=== PATIENT | male | born 1950 | race Caucasian/White ===

== ENCOUNTER 2017-10-10 22:29 | Inpatient (IN) | payer MEDICARE ==
[~2017-10-10] VITALS: Ht 177.8 cm; Wt 73.8 kg
[~2017-10-10 22:29] MED LIST: ASPI-496 PO; EMTR1TAB8 PO; LEVE500T8 PO; LORA-445 PO; MELO15TA24 PO; OMEP-110 PO; OXYC5TAB3 PO; POLY17PO5 PO; RALT400T PO
[2017-10-10] MEDS ORDERED: SODIUM CHLORIDE 0.9% 1,000ML IVBOLUS ONE (23:00)
[2017-10-10] MEDS ORDERED: ONDANSETRON 2MG/ML, 2ML IVPush ONE (23:00)
[2017-10-11] MEDS ORDERED: SODIUM CHLORIDE 0.9% 1,000 ML IV ONE (00:07)
[2017-10-11] MEDS ORDERED: SODIUM CHLORIDE 0.9% 1,000ML IVBOLUS ONE (00:30)
[2017-10-11] MEDS ORDERED: NICOTINE 14MG/24 HR PATCH.TD24 TD ONE (00:30)
[2017-10-11 00:34] LABS: HEMATOCRIT 44.2 % (39.2-51.8); HEMOGLOBIN 15.3 g/dL (13.7-18.0)
[2017-10-11 00:45] LABS: BLOOD UREA NITROGEN 6 mg/dL (7-18)
[2017-10-11 00:48] LABS: ASPARTATE AMINO TRANSFERASE 32 U/L (15-37)
[2017-10-11 00:55] LABS: ACETAMINOPHEN < 2 mcg/mL (10-30)
[2017-10-11 01:06] LABS: DAU SCREEN DISCLAIMER
[2017-10-11] MEDS ORDERED: ONDANSETRON 2MG/ML, 2ML ONE (02:24)
[2017-10-11] MEDS ORDERED: NICOTINE 14MG/24 HR PATCH.TD24 ONE (02:24)
[2017-10-11] MEDS ORDERED: SODIUM CHLORIDE FLUSH 10ML SYR IVF PRN (03:30)
[2017-10-11] MEDS ORDERED: ACETAMINOPHEN 325 MG TABLET PO PRN (04:30)
[2017-10-11] MEDS ORDERED: LORazepam 0.5MG TABLET PO PRN (05:00)
[2017-10-11 08:37] VITALS: BP 150/70
[2017-10-11] MEDS: RALTEGRAVIR 400 MG TABLET PO SCH ×2 (09:00→19:40)
[2017-10-11] MEDS: EMTRICITABINE/TENOFOVIR 200 MG/300 MG TABLET PO SCH (09:00)
[2017-10-11] MEDS: OXYcodone IR 5MG TABLET PO PRN ×3 (09:21→19:40)
[2017-10-11] MEDS: POLYETHYLENE GLYCOL 17 GM PACKET PO SCH (09:22)
[2017-10-11] MEDS: LEVETIRACETAM 500 MG TABLET PO SCH ×2 (09:56→19:40)
[2017-10-11] MEDS: ASPIRIN 81 MG TABLET EC PO SCH (09:56)
[2017-10-11] MEDS: OMEPRAZOLE 20 MG CAPSULE.DR PO SCH (09:56)
[2017-10-11] MEDS: MELOXICAM 15 MG TABLET PO SCH (09:57)
[2017-10-11 13:36] VITALS: BP 150/80
[2017-10-11] MEDS: NICOTINE 14MG/24 HR PATCH.TD24 TD SCH (16:33)
[2017-10-11] MEDS: LORazepam 2 MG/ML, 1ML IVPush PRN ×2 (17:05→23:12)
[2017-10-11 19:35] VITALS: BP 137/73
[2017-10-11] MEDS ORDERED: LORazepam 1MG TABLET ONE (23:04)
[2017-10-12 04:10] VITALS: BP 114/65
[2017-10-12 07:57] VITALS: BP 134/71
[2017-10-12] MEDS: OXYcodone IR 5MG TABLET PO PRN ×3 (08:47→23:02)
[2017-10-12] MEDS: POLYETHYLENE GLYCOL 17 GM PACKET PO SCH (08:48)
[2017-10-12] MEDS: ASPIRIN 81 MG TABLET EC PO SCH (08:49)
[2017-10-12] MEDS: LEVETIRACETAM 500 MG TABLET PO SCH ×2 (08:49→22:04)
[2017-10-12] MEDS: EMTRICITABINE/TENOFOVIR 200 MG/300 MG TABLET PO SCH (08:49)
[2017-10-12] MEDS: RALTEGRAVIR 400 MG TABLET PO SCH ×2 (08:50→22:03)
[2017-10-12] MEDS: OMEPRAZOLE 20 MG CAPSULE.DR PO SCH (08:50)
[2017-10-12] MEDS: MELOXICAM 15 MG TABLET PO SCH (08:50)
[2017-10-12] MEDS: LORazepam 2 MG/ML, 1ML IVPush PRN ×2 (10:12→16:49)
[2017-10-12] MEDS ORDERED: LORazepam 2 MG/ML, 1ML IVPush PRN (11:30)
[2017-10-12] MEDS: NICOTINE 14MG/24 HR PATCH.TD24 TD SCH (17:04)
[2017-10-12] MEDS ORDERED: GADOBUTROL 7.5 MMOL/7.5 ML PFS ONE (17:22)
[2017-10-12 20:27] VITALS: BP 148/74
[2017-10-13] MEDS: LORazepam 2 MG/ML, 1ML IVPush PRN ×3 (00:04→16:52)
[2017-10-13 02:38] VITALS: BP 154/78
[2017-10-13 08:25] VITALS: BP 137/75
[2017-10-13] MEDS: ASPIRIN 81 MG TABLET EC PO SCH (08:57)
[2017-10-13] MEDS: LEVETIRACETAM 500 MG TABLET PO SCH (08:57)
[2017-10-13] MEDS: MELOXICAM 15 MG TABLET PO SCH (08:57)
[2017-10-13] MEDS: EMTRICITABINE/TENOFOVIR 200 MG/300 MG TABLET PO SCH (08:58)
[2017-10-13] MEDS: RALTEGRAVIR 400 MG TABLET PO SCH (08:58)
[2017-10-13] MEDS: OMEPRAZOLE 20 MG CAPSULE.DR PO SCH (08:59)
[2017-10-13] MEDS: POLYETHYLENE GLYCOL 17 GM PACKET PO SCH (09:12)
[2017-10-13] MEDS: OXYcodone IR 5MG TABLET PO PRN ×2 (13:22→15:52)
[2017-10-13 13:59] VITALS: BP 157/75
[2017-10-13] MEDS: NICOTINE 14MG/24 HR PATCH.TD24 TD SCH (14:02)
[2017-10-13] MEDS ORDERED: NICO-486 TD (15:14)
== END 2017-10-13 17:00 | disposition home or self-care (01) | DRG 976 ==
LOC: ED 10-11 00:52 → EDIP 10-11 03:01 → 3NW 10-11 08:10
PROVIDERS: ADMIT Hospitalist; ATTEND Hospitalist
DX: G93.40 Encephalopathy, unspecified (principal); B20 Human immunodeficiency virus [HIV] disease; G40.909 Epilepsy, unspecified, not intractable, without status epilepticus; E87.79 Other fluid overload; F10.21 Alcohol dependence, in remission; K21.9 Gastro-esophageal reflux disease without esophagitis; Z72.0 Tobacco use; Z82.3 Family history of stroke; Z88.0 Allergy status to penicillin; F02.80 Dementia in other diseases classified elsewhere, unspecified severity, without behavioral disturbance, psychotic disturbance, mood disturbance, and anxiety
CPT/HCPCS: 36415; 70450; 70553; 71010; 80053; 80177; 80307; 80329; 81003; 82140; 83605; 84443; 85025; 87040; 93005; 95813; 96374; A9585; J2405; 92523-GN; G0479; G0480; J2060; J7030